=== PATIENT | female | born 1980 | race Caucasian/White ===

== ENCOUNTER 2017-05-12 05:32 | Emergency (ER) | payer OTHER ==
[~2017-05-12] VITALS: Ht 165.1 cm; Wt 81.6 kg
[2017-05-12 05:37] VITALS: BP_SYST 132
[2017-05-12] MEDS ORDERED: PENICILLIN G BENZATHINE 1.2 MMU/2 ML SYR IM ONE (06:00)
[2017-05-12 07:20] VITALS: BP_SYST 130
== END 2017-05-12 07:20 | disposition home or self-care (01) ==
LOC: SED 05:32
DX: J02.9 Acute pharyngitis, unspecified (principal)
CPT/HCPCS: 36415; 86403; 87081; 96372; 99284; J0561

== ENCOUNTER 2019-07-08 08:06 | Emergency (ER) | payer OTHER ==
[~2019-07-08] VITALS: Ht 160 cm; Wt 90.7 kg
[2019-07-08 08:35] VITALS: BP_SYST 149
--- NOTE | 2019-07-08 10:11 | NUR ---
Patient to ER bed 8 to gown for evaluation. Side rails up.
--- NOTE | 2019-07-08 10:12 | NUR ---
Patient is awake, alert, and oriented x4. Patient states she dislocated knee 1 month ago. She struck her knee on a table last night and has had pain. Patient present with left knee pain made worse on movement.
--- NOTE | 2019-07-08 10:27 | NUR ---
ER Dr. Nelson at bedside examining patient.
--- NOTE | 2019-07-08 11:14 | NUR ---
Patient given written and verbal discharge instructions and verbalizes understanding. ER MD discussed with patient the results and treatment provided. Patient in stable condition. ID arm band removed. Patient educated on pain management and to follow up with PMD. Pain Scale 0/10. Opportunity for questions provided and answered. Medication side effect fact sheet provided.
[2019-07-08 11:15] VITALS: BP_SYST 134
== END 2019-07-08 11:15 | disposition home or self-care (01) ==
LOC: SED 08:06
DX: S80.02XA Contusion of left knee, initial encounter (principal); W22.03XA Walked into furniture, initial encounter; Y93.89 Activity, other specified; Y92.89 Other specified places as the place of occurrence of the external cause; Y99.8 Other external cause status
CPT/HCPCS: 73560-TC; 99283